=== PATIENT | male | born 1975 | race Caucasian/White ===

== ENCOUNTER 2017-04-21 06:07 | Emergency (ER) | payer OTHER ==
[~2017-04-21] VITALS: Ht 188 cm; Wt 85.0 kg
[~2017-04-21 06:07] MED LIST: LEVE100020 PO; LEVE500T53 PO; PRED5TAB19 PO; [UNRECOGNIZED DRUG - REMARK]
[2017-04-21 07:10] LABS: DAU SCREEN DISCLAIMER
[2017-04-21 07:20] LABS: HEMATOCRIT 42.2 % (39.2-51.8); HEMOGLOBIN 14.3 g/dL (13.7-18.0); WHITE BLOOD COUNT 10.4 x10^3/uL (3.4-10)
[2017-04-21 07:33] LABS: BLOOD UREA NITROGEN 18 mg/dL (7-18)
[2017-04-21 07:37] LABS: ASPARTATE AMINO TRANSFERASE 25 U/L (15-37)
[2017-04-21 07:42] LABS: ACETAMINOPHEN < 2 mcg/mL (10-30)
[2017-04-21 08:52] VITALS: BP 118/73
== END 2017-04-21 08:54 | disposition home or self-care (01) ==
LOC: ED 07:09
DX: F15.122 Other stimulant abuse with intoxication with perceptual disturbance (principal); F17.210 Nicotine dependence, cigarettes, uncomplicated; Z86.73 Personal history of transient ischemic attack (TIA), and cerebral infarction without residual deficits
CPT/HCPCS: 36415; 80053; 80307; 80329; 85025; 99284; G0480

== ENCOUNTER 2019-10-31 18:44 | Emergency (ER) | payer MEDICAID ==
[~2019-10-31] VITALS: Ht 182.9 cm; Wt 104.5 kg
[2019-10-31] MEDS ORDERED: LEVETIRACETAM 500 MG in SODIUM CHLORIDE 0.9% 100 ML IV ONE (19:00)
--- NOTE | 2019-10-31 19:05 | NUR ---
Pt arrives alert and oriented via [facility]. Pt's coworkers called [employer] after witnessing seizure like activiyt - full body jerky and eye rolling. 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 Pt takes keppra daily. PIV placed by TESS. Blood sugar 109. Pt in gown and on full monitors. Seizures precautions in place. Call light in place.
[2019-10-31] MEDS ORDERED: KETOROLAC 30 MG/1 ML ONE (19:25)
[2019-10-31] MEDS ORDERED: KETOROLAC 30 MG/1 ML IVPush ONE (19:30)
--- NOTE | 2019-10-31 19:32 | NUR ---
Pt medicated per NOV. Lab at bedside for draw.
[2019-10-31 19:33] LABS: BASOPHILS # (AUTO) 0.03 x10^3/uL (0-0.1); BASOPHILS % (AUTO) 1 % (0-1); EOSINOPHILS # (AUTO) 0.18 x10^3/uL (0-0.4); EOSINOPHILS % (AUTO) 3 % (1-7); LYMPHOCYTES # (AUTO) 2.27 x10^3/uL (1-3.4); LYMPHOCYTES % (AUTO) 42 % (22-44); MD NO; MEAN CORPUSCULAR HEMOGLOBIN 28.9 pg (27.5-34.5); MEAN CORPUSCULAR HGB CONC 33.4 g/dL (33.2-36.2); MEAN CORPUSCULAR VOLUME 86.5 fL (81-97); MEAN PLATELET VOLUME 7.9 fL (7.4-10.4); MONOCYTES # (AUTO) 0.39 x10^3/uL (0.2-0.8); MONOCYTES % (AUTO) 7 % (2-9); NEUTROPHILS # (AUTO) 2.51 x10^3/uL (1.8-6.8); NEUTROPHILS % (AUTO) 47 % (42-75); PLATELET COUNT 200 x10^3/uL (130-400); RED BLOOD COUNT 4.87 x10^6/uL (4.38-5.82); RED CELL DISTRIBUTION WIDTH 13.2 % (9.4-14.8)
[2019-10-31 19:44] LABS: ALBUMIN 3.7 g/dL (3.4-5.0); ANION GAP 7 mmol/L (5-15); CALCIUM 8.4 mg/dL (8.5-10.1); CHLORIDE 111 mmol/L (98-107); CREATININE 0.73 mg/dL (0.7-1.3)
[2019-10-31 20:29] VITALS: BP 122/69
--- NOTE | 2019-10-31 20:43 | NUR ---
Pt alert and oriented, NAD at time of d/c. No seizure activity noted in ER. Pt educated on prescription, home care, follow-up and S/Sx to return. Pt VU. Pt ambulated out of ER.
== END 2019-10-31 20:46 | disposition home or self-care (01) ==
LOC: ED 19:18
DX: G40.309 Generalized idiopathic epilepsy and epileptic syndromes, not intractable, without status epilepticus (principal); F17.200 Nicotine dependence, unspecified, uncomplicated; R94.31 Abnormal electrocardiogram [ECG] [EKG]; Z86.73 Personal history of transient ischemic attack (TIA), and cerebral infarction without residual deficits
CPT/HCPCS: 36415; 80048; 82040; 85025; 93005; 96365; 96375; 99284; J1885; J1953

== ENCOUNTER 2019-11-03 13:09 | Inpatient (IN) | payer MEDICAID ==
[~2019-11-03] VITALS: Ht 188 cm; Wt 101.9 kg
--- NOTE | 2019-11-03 13:23 | NUR ---
PT BIB [facility] FOR SEIZURES. PER EMS, PT WAS AT NEIGHBORS AND STATED HE DID NOT FEEL GOOD, UPON ARRIVING HOME HE CALLED 911 AND TOLD THEM HE FELT LIKE HE WAS GOING TO HAVE A SEIZURE. WHILE ON THE PHONE WITH 911, PT WENT UNRESPONSIVE AND HAD A SEIZURE. WHEN EMS ARRIVED ON SCENE, FSBG 122, 18G PIV ESTABLISHED IN LEFT AC, PT POST-ICTAL BUT AAO X 4, CONVERSING IN FULL SENTENCES. PT TOLD EMS HE DID NOT HIT HIS HEAD, NO C/O PAIN, AND NO INCONTINENCE. WHILE EN ROUTE TO FACILITY, PT HAD ANOTHER SEIZURE AND EMS GAVE A TOTAL 8MG IVP VERSED FOR STATUS EPILEPTICUS. PT THEN PLACED ON 15L NON-REBREATHER AND ETCO2 MONITOR (READING 35). PT ARRIVED TO ED SOMULENT, CONFUSED BUT POST-ICTAL. ANSWERING SOME QUESTIONS. PUPILS 4MM BRISK BILATERALLY. PT ON FULL MONITOR, SIDERAIL X [address] AND SEIZURE PADS IN PLACE. LAB AT BEDSIDE FOR LAB DRAW. MD AT BEDSIDE FOR ASSESSMENT.
[2019-11-03] MEDS ORDERED: SODIUM CHLORIDE FLUSH 10ML SYR IVF ONE (13:30)
[2019-11-03] MEDS ORDERED: LEVETIRACETAM 500 MG in SODIUM CHLORIDE 0.9% 100 ML IV ONE (13:30)
[2019-11-03 13:40] LABS: BASOPHILS # (AUTO) 0.03 x10^3/uL (0-0.1); BASOPHILS % (AUTO) 1 % (0-1); EOSINOPHILS # (AUTO) 0.24 x10^3/uL (0-0.4); EOSINOPHILS % (AUTO) 4 % (1-7); LYMPHOCYTES # (AUTO) 1.84 x10^3/uL (1-3.4); LYMPHOCYTES % (AUTO) 30 % (22-44); MD NO; MEAN CORPUSCULAR HEMOGLOBIN 28.9 pg (27.5-34.5); MEAN CORPUSCULAR HGB CONC 33.7 g/dL (33.2-36.2); MEAN CORPUSCULAR VOLUME 85.7 fL (81-97); MEAN PLATELET VOLUME 8.4 fL (7.4-10.4); MONOCYTES # (AUTO) 0.33 x10^3/uL (0.2-0.8); MONOCYTES % (AUTO) 6 % (2-9); NEUTROPHILS # (AUTO) 3.66 x10^3/uL (1.8-6.8); NEUTROPHILS % (AUTO) 60 % (42-75); PLATELET COUNT 203 x10^3/uL (130-400); RED CELL DISTRIBUTION WIDTH 13.4 % (9.4-14.8)
--- NOTE | 2019-11-03 13:40 | NUR ---
PT TO CT.
[2019-11-03] MEDS ORDERED: LORazepam 2 MG/ML, 1ML ONE (13:51)
[2019-11-03 13:52] LABS: ALANINE AMINOTRANSFERASE 25 U/L (12-78); ALBUMIN 3.8 g/dL (3.4-5.0); ANION GAP 9 mmol/L (5-15); CALCIUM 8.6 mg/dL (8.5-10.1); CHLORIDE 107 mmol/L (98-107); CREATININE 0.93 mg/dL (0.7-1.3)
[2019-11-03 13:55] LABS: ALKALINE PHOSPHATASE 75 U/L (45-117); BILIRUBIN,TOTAL 0.7 mg/dL (0.2-1.0); CREATINE KINASE, TOTAL 110 U/L (39-308); TOTAL PROTEIN 7.4 g/dL (6.4-8.2)
--- NOTE | 2019-11-03 13:57 | NUR ---
ASSUMED CARE OF PATIENT AFTER HE WAS MOVED TO TRAUMA 4 FROM ROOM 26. SBAR HAND-OFF REPORT RECEIVED FROM RAHEEL SIERRA. 2MG ATIVAN IVP GIVEN. IV KEPPRA STARTED.
--- NOTE | 2019-11-03 13:59 | NUR ---
PT HAS STOPPED SEIZING. SECOND PIV ESTABLISHED.
[2019-11-03] MEDS ORDERED: KETAMINE 10 MG/ML, 20ML ONE (14:18)
[2019-11-03] MEDS ORDERED: KETAMINE 10 MG/ML, 20ML IV ONE (14:30)
[2019-11-03] MEDS ORDERED: LORazepam 2 MG/ML, 1ML IVPush ONE (14:30)
--- NOTE | 2019-11-03 14:40 | NUR ---
PATIENT AWAKE NOW BUT DROWSY AND CONFUSED. PT DOES NOT RECALL EVENTS THAT BROUGHT HIM TO THE ER. DR. POP AT BEDSIDE. ORIENTING PATIENT TO WHAT HAS TRANSPIRED AND PLAN OF CARE. PT IN NO DISTRESS.
--- NOTE | 2019-11-03 14:59 | NUR ---
MOVED PATIENT TO ROOM 1. CONTINUOUS SPO2 AND CARDIAC MONITORS IN PLACE.
[2019-11-03] MEDS ORDERED: ACETAMINOPHEN 325 MG TABLET PO PRN (15:00)
[2019-11-03] MEDS ORDERED: ONDANSETRON ODT 4 MG PO PRN (15:00)
[2019-11-03] MEDS ORDERED: ENOXAPARIN 40 MG/0.4 ML SQ SCH (15:00)
[2019-11-03] MEDS ORDERED: hydrALAzine 20 MG/ML, 1ML IVPush PRN (15:00)
[2019-11-03] MEDS ORDERED: ENOXAPARIN 40 MG/0.4 ML ONE (15:09)
[2019-11-03 15:18] LABS: AMPHETAMINE SCREEN, URINE Negative (Negative); BARBITURATE SCREEN, URINE Negative (Negative); BENZODIAZEPINE SCREEN, URINE Positive (Negative); CANNABINOID SCREEN, URINE Negative (Negative); COCAINE SCREEN, URINE Negative (Negative); METHADONE SCREEN, URINE Negative (Negative); OPIATE SCREEN, URINE Negative (Negative)
--- NOTE | 2019-11-03 15:22 | NUR ---
Pt medicated per emar and meds requested.
--- NOTE | 2019-11-03 15:46 | NUR ---
REPORT CALLED TO RIANA RN [phone]
--- NOTE | 2019-11-03 16:06 | NUR ---
pT HAVING REPEATED TREMOROUS EVENTS, PER MD PT APPEARS TO BE HAVING PSEUDOSEIZURE.
--- NOTE | 2019-11-03 16:38 | NUR ---
PT INTENTIONALLY PULLED PIV OUT. PT REPORTS HE WAS HAVING Tasneem VARGHESE RN WHILE ASSISTING OTHER PATINE CLEARLY SAW PT SLWOLY PULLING TAPE AWAY AND BEGINING TO DISLODGE CATHETER. PT THEN STARTED FLINGING ARM. Addendum: 11/03/19 at 1641 by FRANCEARGJEAN PT INTENTIONALLY PULLED PIV OUT. PT REPORTS HE WAS HAVING Tasneem VARGHESE RN WHILE ASSISTING OTHER PATIENT CLEARLY SAW PT SLOWLY PULLING TAPE AWAY AND BEGINING TO DISLODGE CATHETER. PT THEN STARTED FLINGING ARM SECONDLY TO COMPLETELY DISLODGE IV.
[2019-11-03 17:50] VITALS: BP 129/83
[2019-11-03 19:31] VITALS: BP 112/71
[2019-11-03] MEDS: D5%-0.45NACL+KCL 20MEQ 1,000 ML IV SCH (20:25)
[2019-11-03] MEDS: LEVETIRACETAM 500 MG TABLET PO SCH (20:26)
[2019-11-03 21:15] VITALS: BP 110/68
[2019-11-04 02:12] VITALS: BP 110/68
[2019-11-04 06:22] LABS: BASOPHILS # (AUTO) 0.04 x10^3/uL (0-0.1); BASOPHILS % (AUTO) 1 % (0-1); EOSINOPHILS # (AUTO) 0.26 x10^3/uL (0-0.4); EOSINOPHILS % (AUTO) 5 % (1-7); LYMPHOCYTES # (AUTO) 2.57 x10^3/uL (1-3.4); LYMPHOCYTES % (AUTO) 46 % (22-44); MD NO; MEAN CORPUSCULAR HEMOGLOBIN 28.8 pg (27.5-34.5); MEAN CORPUSCULAR HGB CONC 33.6 g/dL (33.2-36.2); MEAN CORPUSCULAR VOLUME 85.7 fL (81-97); MEAN PLATELET VOLUME 8.9 fL (7.4-10.4); MONOCYTES # (AUTO) 0.38 x10^3/uL (0.2-0.8); MONOCYTES % (AUTO) 7 % (2-9); NEUTROPHILS # (AUTO) 2.36 x10^3/uL (1.8-6.8); NEUTROPHILS % (AUTO) 42 % (42-75); PLATELET COUNT 193 x10^3/uL (130-400); RED BLOOD COUNT 5.02 x10^6/uL (4.38-5.82); RED CELL DISTRIBUTION WIDTH 13.2 % (9.4-14.8)
[2019-11-04 06:32] LABS: ANION GAP 6 mmol/L (5-15); CALCIUM 8.7 mg/dL (8.5-10.1); CHLORIDE 108 mmol/L (98-107); CREATININE 0.87 mg/dL (0.7-1.3)
[2019-11-04 07:40] VITALS: BP 101/67
[2019-11-04] MEDS: LEVETIRACETAM 500 MG TABLET PO SCH (08:27)
[2019-11-04] MEDS ORDERED: LEVETIRACETAM 100 MG/ML, 5ML IV STA (08:37)
[2019-11-04] MEDS ORDERED: VALPROATE SODIUM 100 MG/ML, 5ML IV STA (08:57)
[2019-11-04] MEDS ORDERED: LEVETIRACETAM 500 MG in SODIUM CHLORIDE 0.9% 100 ML IV ONE (09:00)
[2019-11-04] MEDS ORDERED: VALPROATE SODIUM 750 MG in SODIUM CHLORIDE 0.9% 100 ML IV ONE (09:30)
[2019-11-04] MEDS: D5%-0.45NACL+KCL 20MEQ 1,000 ML IV SCH (13:14)
[2019-11-04] MEDS ORDERED: VALP250C59 PO (13:20)
[2019-11-04] MEDS ORDERED: LEVE500T53 PO (13:20)
[2019-11-04 14:18] VITALS: BP 114/74
[2019-11-04] MEDS ORDERED: VALPROIC ACID 250 MG CAPSULE PO SCH (20:00)
[2019-11-04] MEDS ORDERED: LEVETIRACETAM 500 MG TABLET PO SCH (21:00)
== END 2019-11-04 15:03 | disposition home or self-care (01) | DRG 101 ==
LOC: EDIP 14:21 → SUATTDRO 14:24 → ED 14:44 → 4EST 16:35 → DCLOUNGE 11-04 15:02
PROVIDERS: ADMIT Hospitalist; ATTEND Family Medicine
DX: G40.909 Epilepsy, unspecified, not intractable, without status epilepticus (principal); Z86.73 Personal history of transient ischemic attack (TIA), and cerebral infarction without residual deficits; Z79.899 Other long term (current) drug therapy
CPT/HCPCS: 36415; 70450; 80048; 80053; 80177; 80307; 82550; 83605; 83735; 85025; 93005; 95816; 96372; 96374; 96375; G0378; J1650; J1953; J2060; J3480

== ENCOUNTER 2019-12-07 10:39 | Emergency (ER) | payer MEDICAID ==
[~2019-12-07] VITALS: Ht 188 cm; Wt 103.0 kg
[~2019-12-07 10:39] MED LIST changes: +VALP250C59 PO
[2019-12-07] MEDS ORDERED: SODIUM CHLORIDE 0.9% 1,000ML IVBOLUS ONE (11:00)
[2019-12-07] MEDS ORDERED: SODIUM CHLORIDE FLUSH 10ML SYR IVF ONE (11:00)
--- NOTE | 2019-12-07 11:30 | NUR ---
task RN note: PIV placed, pt attached to all monitors, seizure precautions in place. mask on patient. report given to RAHEEL Galan.
[2019-12-07] MEDS ORDERED: LEVE500T53 PO (11:36)
--- NOTE | 2019-12-07 11:38 | NUR ---
REPORT FROM BENEDICT PICKERING. XR LABS PENDING. PT STILL C/O AURA. A&OX4 GCS 15. 06/18 BODY ACHES. CALL RAMIREZ IN REACH. VSS. SR ON MONITOR 60S.
[2019-12-07 11:54] LABS: BASOPHILS # (AUTO) 0.07 x10^3/uL (0-0.1); BASOPHILS % (AUTO) 1 % (0-1); EOSINOPHILS # (AUTO) 0.33 x10^3/uL (0-0.4); EOSINOPHILS % (AUTO) 6 % (1-7); LYMPHOCYTES # (AUTO) 2.01 x10^3/uL (1-3.4); LYMPHOCYTES % (AUTO) 35 % (22-44); MD NO; MEAN CORPUSCULAR HGB CONC 33.8 g/dL (33.2-36.2); MEAN CORPUSCULAR VOLUME 85.9 fL (81-97); MEAN PLATELET VOLUME 8.8 fL (7.4-10.4); MONOCYTES # (AUTO) 0.45 x10^3/uL (0.2-0.8); MONOCYTES % (AUTO) 8 % (2-9); NEUTROPHILS # (AUTO) 2.83 x10^3/uL (1.8-6.8); NEUTROPHILS % (AUTO) 50 % (42-75); PLATELET COUNT 203 x10^3/uL (130-400); RED BLOOD COUNT 5.34 x10^6/uL (4.38-5.82); RED CELL DISTRIBUTION WIDTH 13.4 % (9.4-14.8)
[2019-12-07 12:02] LABS: ALANINE AMINOTRANSFERASE 36 U/L (12-78); ALBUMIN 3.7 g/dL (3.4-5.0); ANION GAP 6 mmol/L (5-15); CALCIUM 8.5 mg/dL (8.5-10.1); CHLORIDE 109 mmol/L (98-107); CREATININE 1.16 mg/dL (0.7-1.3)
[2019-12-07 12:05] LABS: ALKALINE PHOSPHATASE 97 U/L (45-117); BILIRUBIN,TOTAL 0.7 mg/dL (0.2-1.0); TOTAL PROTEIN 7.6 g/dL (6.4-8.2)
[2019-12-07 12:16] LABS: RAPID INFLUENZA A Negative (Negative); RAPID INFLUENZA B Negative (Negative)
[2019-12-07 13:05] VITALS: BP 112/60
--- NOTE | 2019-12-07 13:25 | NUR ---
Patient/Caregiver given discharge instructions and they have confirmed that they understand the instructions. Patient ambulatory with steady gait.
== END 2019-12-07 13:43 | disposition home or self-care (01) ==
LOC: ED 10:56
DX: R11.2 Nausea with vomiting, unspecified (principal); Z20.828 Contact with and (suspected) exposure to other viral communicable diseases; R05 Cough; R19.7 Diarrhea, unspecified; G43.909 Migraine, unspecified, not intractable, without status migrainosus; Z86.73 Personal history of transient ischemic attack (TIA), and cerebral infarction without residual deficits
CPT/HCPCS: 36415; 71045; 80053; 83690; 85025; 87400; 93005; 96360; 99285; J7030

== ENCOUNTER 2019-12-20 17:02 | Emergency (ER) | payer MEDICAID ==
[~2019-12-20] VITALS: Ht 185.4 cm; Wt 114.0 kg
[2019-12-20 17:29] LABS: BASOPHILS # (AUTO) 0.04 x10^3/uL (0-0.1); BASOPHILS % (AUTO) 1 % (0-1); EOSINOPHILS # (AUTO) 0.15 x10^3/uL (0-0.4); EOSINOPHILS % (AUTO) 3 % (1-7); LYMPHOCYTES # (AUTO) 2.06 x10^3/uL (1-3.4); LYMPHOCYTES % (AUTO) 35 % (22-44); MD NO; MEAN CORPUSCULAR HEMOGLOBIN 28.9 pg (27.5-34.5); MEAN CORPUSCULAR HGB CONC 33.4 g/dL (33.2-36.2); MEAN CORPUSCULAR VOLUME 86.6 fL (81-97); MEAN PLATELET VOLUME 7.9 fL (7.4-10.4); MONOCYTES # (AUTO) 0.36 x10^3/uL (0.2-0.8); MONOCYTES % (AUTO) 6 % (2-9); NEUTROPHILS # (AUTO) 3.24 x10^3/uL (1.8-6.8); NEUTROPHILS % (AUTO) 55 % (42-75); PLATELET COUNT 205 x10^3/uL (130-400); RED BLOOD COUNT 4.85 x10^6/uL (4.38-5.82)
[2019-12-20] MEDS ORDERED: THIAMINE 100 MG in DEXTROSE 5% 50 ML IVPB ONE (17:30)
[2019-12-20] MEDS ORDERED: SODIUM CHLORIDE FLUSH 10ML SYR IVF ONE (17:30)
[2019-12-20] MEDS ORDERED: PLEASE ENTER HEIGHT AND WEIGHT MC SCH (17:30)
[2019-12-20 17:40] LABS: ALANINE AMINOTRANSFERASE 29 U/L (12-78); ALBUMIN 3.8 g/dL (3.4-5.0); ANION GAP 9 mmol/L (5-15); CALCIUM 8.5 mg/dL (8.5-10.1); CHLORIDE 109 mmol/L (98-107); CREATININE 0.89 mg/dL (0.7-1.3); SALICYLATE LEVEL 1.7 mg/dL (2.8-20.0)
--- NOTE | 2019-12-20 17:41 | NUR ---
PT MEDICATED PER NOV. PT SLEEPING IN [facility] AT THIS TIME; NADN. PT VSS AT THIS TIME.
[2019-12-20 18:15] LABS: ALKALINE PHOSPHATASE 76 U/L (45-117); BILIRUBIN,TOTAL 0.3 mg/dL (0.2-1.0); TOTAL PROTEIN 7.2 g/dL (6.4-8.2)
--- NOTE | 2019-12-20 18:41 | NUR ---
PT IS AWAKE AND ALERT AND ORIENTED. PT REQUESTING SNACK AT THIS TIME. DR RIOS AT FOR PT HISTORY AND ASSESSMENT.
[2019-12-20 19:02] VITALS: BP 106/64
--- NOTE | 2019-12-20 19:02 | NUR ---
PT RESTING IN ROOM. VSS. WARM BLANKET PROVIDED FOR COMFORT. NO OTHER NEEDS EXPRESSED. WILL CONTINUE TO MONITOR.
--- NOTE | 2019-12-20 20:22 | NUR ---
pt able to safely ambulate without assistance. plan to dc.
== END 2019-12-20 20:20 ==
LOC: ED 17:17
DX: G40.309 Generalized idiopathic epilepsy and epileptic syndromes, not intractable, without status epilepticus (principal); G43.909 Migraine, unspecified, not intractable, without status migrainosus; R55 Syncope and collapse; F17.200 Nicotine dependence, unspecified, uncomplicated
CPT/HCPCS: 36415; 70450; 80053; 80164; 80307; 85025; 93005; 96365; 99285; J3411

== ENCOUNTER 2020-06-29 00:32 | Emergency (ER) | payer MEDICAID, OTHER ==
[~2020-06-29] VITALS: Ht 177.8 cm; Wt 90.0 kg
--- NOTE | 2020-06-29 00:35 | NUR ---
44 year old male to ED [facility] for seizures. EMS was activated by his as he had a seizure in bed. Upon arrival, he was wittnessed to have another seizure. He was given 5 mg versed IM, then 2mg more IVP. He was immediately AAO x 4 per report. Upon arrival, he was noted to have several episodes of shaking with confusion. He states the last thing he remembers is lying in bed at home. ED workup initiated.
--- NOTE | 2020-06-29 00:47 | NUR ---
Patient having multiple seizures every 5 minutes that last 60 seconds with shaking. Airway remains uncompromised. Seizure pads placed on rails, suction nearby. Md notified. Awaiting response.
[2020-06-29 01:10] LABS: BASOPHILS % (AUTO) 1 % (0-1); EOSINOPHILS % (AUTO) 4 % (1-7); LYMPHOCYTES % (AUTO) 51 % (22-44); MEAN CORPUSCULAR HEMOGLOBIN 28.2 pg (27.5-34.5); MEAN CORPUSCULAR HGB CONC 33.3 g/dL (33.2-36.2); MEAN PLATELET VOLUME 8.4 fL (7.4-10.4); MONOCYTES % (AUTO) 7 % (2-9); NEUTROPHILS % (AUTO) 38 % (42-75); PLATELET COUNT 199 x10^3/uL (130-400); RED BLOOD COUNT 5.24 x10^6/uL (4.38-5.82); RED CELL DISTRIBUTION WIDTH 13.6 % (9.4-14.8)
[2020-06-29 01:16] LABS: ALANINE AMINOTRANSFERASE 24 U/L (12-78); ALBUMIN 3.8 g/dL (3.4-5.0); ANION GAP 6 mmol/L (5-15); CALCIUM 8.7 mg/dL (8.5-10.1); CHLORIDE 109 mmol/L (98-107); CREATININE 0.81 mg/dL (0.7-1.3)
[2020-06-29 01:18] LABS: ALKALINE PHOSPHATASE 82 U/L (45-117); BILIRUBIN,TOTAL 0.3 mg/dL (0.2-1.0); TOTAL PROTEIN 7.1 g/dL (6.4-8.2)
--- NOTE | 2020-06-29 01:35 | NUR ---
patient asleep yet rousable to touch. He remains confused. VSS.
[2020-06-29 01:37] LABS: MD SCAN
--- NOTE | 2020-06-29 03:00 | NUR ---
patient asleep yet rousable to touch. He remains confused. VSS.
[2020-06-29 04:19] VITALS: BP 100/59
--- NOTE | 2020-06-29 06:09 | NUR ---
SPOKE TO THE PATIENT'S , SHE WILL BE IN ROUTE TO PICK HIM UP AROUND 7.
--- NOTE | 2020-06-29 06:50 | NUR ---
BEDSIDE REPORT FROM MALIKA PICKERING WITH ASSESSMENT PATIENT WITHOUT ANY NEUROLOGICAL ABNORMALITIES. WALKING W/OUT DIFFICULTY, EATING [facility] CALLED
== END 2020-06-29 07:18 | disposition home or self-care (01) ==
LOC: ED 06:21
DX: R56.9 Unspecified convulsions (principal); F17.200 Nicotine dependence, unspecified, uncomplicated; Z86.73 Personal history of transient ischemic attack (TIA), and cerebral infarction without residual deficits
CPT/HCPCS: 36415; 80053; 80307; 85025; 93005; 99284

== ENCOUNTER 2020-08-03 16:52 | Emergency (ER) | payer MEDICAID ==
[~2020-08-03] VITALS: Ht 188 cm; Wt 110.0 kg
[2020-08-03 16:54] VITALS: BP 117/72
[2020-08-03 17:23] LABS: BASOPHILS % (AUTO) 1 % (0-1); EOSINOPHILS % (AUTO) 4 % (1-7); LYMPHOCYTES % (AUTO) 45 % (22-44); MEAN CORPUSCULAR HEMOGLOBIN 28.8 pg (27.5-34.5); MEAN CORPUSCULAR HGB CONC 33.9 g/dL (33.2-36.2); MEAN PLATELET VOLUME 8.2 fL (7.4-10.4); MONOCYTES % (AUTO) 6 % (2-9); NEUTROPHILS % (AUTO) 45 % (42-75); PLATELET COUNT 213 x10^3/uL (130-400); RED BLOOD COUNT 5.49 x10^6/uL (4.38-5.82); RED CELL DISTRIBUTION WIDTH 13.8 % (9.4-14.8)
[2020-08-03 17:28] LABS: MD NO
[2020-08-03 17:33] LABS: ALANINE AMINOTRANSFERASE 22 U/L (12-78); ALBUMIN 4.1 g/dL (3.4-5.0); ANION GAP 6 mmol/L (5-15); CALCIUM 9.1 mg/dL (8.5-10.1); CHLORIDE 107 mmol/L (98-107); CREATININE 0.91 mg/dL (0.7-1.3)
[2020-08-03 17:36] LABS: ALKALINE PHOSPHATASE 83 U/L (45-117); BILIRUBIN,TOTAL 0.5 mg/dL (0.2-1.0); TOTAL PROTEIN 7.9 g/dL (6.4-8.2)
--- NOTE | 2020-08-03 19:34 | NUR ---
NO ANSWER FOR EKG @ [id number]
--- NOTE | 2020-08-03 20:06 | NUR ---
NO ANSWER FOR ROOM.
--- NOTE | 2020-08-03 20:27 | NUR ---
3 rd time call in lobby. no anwer
== END 2020-08-03 20:29 | disposition left against medical advice (07) ==
LOC: ED 17:22
DX: J06.9 Acute upper respiratory infection, unspecified (principal); R05 Cough; R53.83 Other fatigue; R06.02 Shortness of breath; R07.89 Other chest pain
CPT/HCPCS: 36415; 71045; 80053; 83690; 85025; 99284

== ENCOUNTER 2020-11-28 01:24 | Emergency (ER) | payer MEDICAID ==
[~2020-11-28] VITALS: Ht 188 cm; Wt 110.0 kg
[2020-11-28 02:12] LABS: BASOPHILS % (AUTO) 1 % (0-1); EOSINOPHILS % (AUTO) 4 % (1-7); LYMPHOCYTES % (AUTO) 48 % (22-44); MEAN CORPUSCULAR HEMOGLOBIN 28.7 pg (27.5-34.5); MEAN CORPUSCULAR HGB CONC 33.5 g/dL (33.2-36.2); MEAN PLATELET VOLUME 8.5 fL (7.4-10.4); MONOCYTES % (AUTO) 7 % (2-9); NEUTROPHILS % (AUTO) 40 % (42-75); PLATELET COUNT 188 x10^3/uL (130-400); RED BLOOD COUNT 4.92 x10^6/uL (4.38-5.82); RED CELL DISTRIBUTION WIDTH 13.8 % (9.4-14.8)
[2020-11-28 02:20] LABS: ALANINE AMINOTRANSFERASE 26 U/L (12-78); ALBUMIN 3.3 g/dL (3.4-5.0); ANION GAP 6 mmol/L (5-15); CALCIUM 7.9 mg/dL (8.5-10.1); CHLORIDE 113 mmol/L (98-107)
[2020-11-28 02:21] LABS: MD SCAN
[2020-11-28 02:24] LABS: ALKALINE PHOSPHATASE 92 U/L (45-117); BILIRUBIN,TOTAL 0.2 mg/dL (0.2-1.0); TOTAL PROTEIN 6.3 g/dL (6.4-8.2); TROPONIN I < 0.015 ng/mL (0.000-0.045)
[2020-11-28 02:35] VITALS: BP 122/65
== END 2020-11-28 03:09 | disposition home or self-care (01) ==
LOC: ED 03:03
DX: R06.00 Dyspnea, unspecified (principal); R07.89 Other chest pain; F41.1 Generalized anxiety disorder; F17.200 Nicotine dependence, unspecified, uncomplicated; G40.909 Epilepsy, unspecified, not intractable, without status epilepticus; Z86.73 Personal history of transient ischemic attack (TIA), and cerebral infarction without residual deficits
CPT/HCPCS: 36415; 71045; 80053; 84484; 85025; 93005; 99285

== ENCOUNTER 2021-04-07 18:13 | Inpatient (IN) | payer MEDICAID ==
[~2021-04-07] VITALS: Ht 188 cm; Wt 98.4 kg
[2021-04-07] MEDS ORDERED: LORazepam 2 MG/ML, 1ML ONE ×2 (18:18)
[2021-04-07] MEDS ORDERED: MIDAZOLAM 1 MG/ML, 5ML ONE (18:24)
[2021-04-07] MEDS ORDERED: SODIUM CHLORIDE 0.9% 1,000ML IVBOLUS ONE (18:30)
[2021-04-07] MEDS ORDERED: LORazepam 2 MG/ML, 1ML IVPush ONE (18:30)
--- NOTE | 2021-04-07 18:31 | NUR ---
pt bib [facility]. witnessed sz at home by fire and ems. pt medicated in route 2.5 versed. pt on monitor and actively sz intermittently. medicated per orders dr cedeno at bedside.. ativan 8mg total, 4mg versed. pt maintaining airway. see vs 135/75 hr 75 sats 99%
--- NOTE | 2021-04-07 18:33 | NUR ---
mx iv attempts. R EJ by Clara PICKERING
[2021-04-07 18:54] LABS: ALANINE AMINOTRANSFERASE 24 U/L (12-78); ALBUMIN 3.5 g/dL (3.4-5.0); ANION GAP 8 mmol/L (5-15); BASOPHILS % (AUTO) 1 % (0-1); CALCIUM 8.5 mg/dL (8.5-10.1); CHLORIDE 108 mmol/L (98-107); CREATININE 0.85 mg/dL (0.7-1.3); EOSINOPHILS % (AUTO) 3 % (1-7); LYMPHOCYTES % (AUTO) 40 % (22-44); MEAN CORPUSCULAR HEMOGLOBIN 28.2 pg (27.5-34.5); MEAN CORPUSCULAR HGB CONC 32.9 g/dL (33.2-36.2); MEAN PLATELET VOLUME 8.5 fL (7.4-10.4); MONOCYTES % (AUTO) 7 % (2-9); NEUTROPHILS % (AUTO) 50 % (42-75); PLATELET COUNT 201 x10^3/uL (130-400); RED BLOOD COUNT 5.21 x10^6/uL (4.38-5.82); RED CELL DISTRIBUTION WIDTH 13.4 % (9.4-14.8)
--- NOTE | 2021-04-07 18:54 | NUR ---
REPORT FROM KAJAL PICKERINGDREDGE DECKHAND OF CARE AT THIS TIME
[2021-04-07 18:56] LABS: ALKALINE PHOSPHATASE 74 U/L (45-117); BILIRUBIN,TOTAL 0.3 mg/dL (0.2-1.0)
--- NOTE | 2021-04-07 18:56 | NUR ---
REQ SENT TO PHARM FOR MEDS, PT RESTING ON JEANMARIE PABON AT BEDSIDE.
[2021-04-07] MEDS ORDERED: MIDAZOLAM 1 MG/ML, 2ML IVPush PRN (19:00)
[2021-04-07] MEDS ORDERED: LEVETIRACETAM 750 MG in SODIUM CHLORIDE 0.9% 100 ML IV ONE (19:00)
[2021-04-07] MEDS ORDERED: PLEASE ENTER HEIGHT AND WEIGHT MC SCH (19:00)
--- NOTE | 2021-04-07 19:10 | NUR ---
PT TO CT WITH RNCHAVEZ STARTED.
--- NOTE | 2021-04-07 19:28 | NUR ---
PT BACK FROM CT AT THIS TIME LOADING DOSE OF KEPPRA COMPLETED.
--- NOTE | 2021-04-07 20:12 | NUR ---
hospitalist at bedside for admit
--- NOTE | 2021-04-07 20:59 | NUR ---
RECEIVED REPORT FROM HERMELINDA PICKERING, TRANSFER OF CARE. PT CURRENTLY SLEEPING IN BED. AT BEDSIDE. JEANMARIE, VSS. ATTACHED TO ALL MONITORS. SEIZURE SAFETY PRECAUTIONS PUT INTO PLACE. WCTM
[2021-04-07] MEDS ORDERED: ONDANSETRON 2MG/ML, 2ML IV PRN (21:00)
[2021-04-07] MEDS ORDERED: ACETAMINOPHEN 650 MG/20.3 ML UDC PO PRN (21:00)
[2021-04-07] MEDS ORDERED: DOCUSATE 100 MG CAPSULE PO PRN (21:00)
[2021-04-07] MEDS ORDERED: LORazepam 2 MG/ML, 1ML IV PRN (21:00)
--- NOTE | 2021-04-07 21:11 | NUR ---
crystal [phone]
[2021-04-07] MEDS ORDERED: VALPROATE SODIUM 750 MG in DEXTROSE 5% 100 ML IV SCH (21:30)
[2021-04-07] MEDS: LEVETIRACETAM 500 MG in SODIUM CHLORIDE 0.9% 100 ML IV SCH (21:30)
[2021-04-07] MEDS ORDERED: ENOXAPARIN 40 MG/0.4 ML ONE (21:35)
--- NOTE | 2021-04-07 21:45 | NUR ---
REPORT GIVEN TO JUSTIN PICKERING
[2021-04-07] MEDS: ENOXAPARIN 40 MG/0.4 ML SQ SCH (21:47)
--- NOTE | 2021-04-07 21:48 | NUR ---
sent josephine back to pharmacy. [facility] said to skip first dose due to last dose given so soon,
[2021-04-07] MEDS: VALPROATE SODIUM 750 MG in DEXTROSE 5% 100 ML IV SCH (21:51)
[2021-04-07 22:30] VITALS: BP 114/72
[2021-04-08 01:35] VITALS: BP 111/74
[2021-04-08 05:43] LABS: BASOPHILS % (AUTO) 1 % (0-1); EOSINOPHILS % (AUTO) 3 % (1-7); LYMPHOCYTES % (AUTO) 42 % (22-44); MEAN CORPUSCULAR HEMOGLOBIN 29.1 pg (27.5-34.5); MEAN CORPUSCULAR HGB CONC 34.4 g/dL (33.2-36.2); MEAN PLATELET VOLUME 8.4 fL (7.4-10.4); MONOCYTES % (AUTO) 7 % (2-9); NEUTROPHILS % (AUTO) 48 % (42-75); PLATELET COUNT 176 x10^3/uL (130-400); RED BLOOD COUNT 5.17 x10^6/uL (4.38-5.82); RED CELL DISTRIBUTION WIDTH 13.1 % (9.4-14.8)
[2021-04-08 05:56] LABS: ANION GAP 4 mmol/L (5-15); CALCIUM 8.7 mg/dL (8.5-10.1); CHLORIDE 110 mmol/L (98-107)
[2021-04-08 05:58] LABS: CREATININE 0.79 mg/dL (0.7-1.3)
[2021-04-08 06:55] VITALS: BP 111/69
[2021-04-08] MEDS: LEVETIRACETAM 500 MG in SODIUM CHLORIDE 0.9% 100 ML IV SCH ×2 (11:15→23:09)
[2021-04-08] MEDS: VALPROATE SODIUM 750 MG in DEXTROSE 5% 100 ML IV SCH ×2 (11:50→20:55)
[2021-04-08] MEDS ORDERED: VALP250C59 PO (11:53)
[2021-04-08] MEDS ORDERED: LEVE500T53 PO (11:53)
[2021-04-08 14:01] VITALS: BP 107/66
[2021-04-08] MEDS ORDERED: LORazepam 2 MG/ML, 1ML IVPush ONE (14:30)
[2021-04-08 16:43] LABS: AMPHETAMINE SCREEN, URINE Negative (Negative); BARBITURATE SCREEN, URINE Negative (Negative); BENZODIAZEPINE SCREEN, URINE Positive (Negative); CANNABINOID SCREEN, URINE Negative (Negative); COCAINE SCREEN, URINE Negative (Negative); METHADONE SCREEN, URINE Negative (Negative); OPIATE SCREEN, URINE Negative (Negative)
[2021-04-08 16:48] LABS: TROPONIN I < 0.015 ng/mL (0.000-0.045)
[2021-04-08 20:53] VITALS: BP 103/64
[2021-04-08] MEDS: ENOXAPARIN 40 MG/0.4 ML SQ SCH (20:55)
[2021-04-08 21:50] LABS: TROPONIN I < 0.015 ng/mL (0.000-0.045)
[2021-04-09 00:58] VITALS: BP 103/66
[2021-04-09 06:07] LABS: BASOPHILS % (AUTO) 1 % (0-1); EOSINOPHILS % (AUTO) 3 % (1-7); LYMPHOCYTES % (AUTO) 48 % (22-44); MEAN CORPUSCULAR HEMOGLOBIN 29.1 pg (27.5-34.5); MEAN CORPUSCULAR HGB CONC 34.5 g/dL (33.2-36.2); MEAN PLATELET VOLUME 8.7 fL (7.4-10.4); MONOCYTES % (AUTO) 6 % (2-9); NEUTROPHILS % (AUTO) 42 % (42-75); PLATELET COUNT 182 x10^3/uL (130-400); RED BLOOD COUNT 5.09 x10^6/uL (4.38-5.82); RED CELL DISTRIBUTION WIDTH 13.5 % (9.4-14.8)
[2021-04-09 06:16] LABS: ALBUMIN 3.2 g/dL (3.4-5.0); ANION GAP 6 mmol/L (5-15); CALCIUM 8.6 mg/dL (8.5-10.1); CHLORIDE 109 mmol/L (98-107)
[2021-04-09 06:20] LABS: ALANINE AMINOTRANSFERASE 18 U/L (12-78); ALKALINE PHOSPHATASE 69 U/L (45-117); BILIRUBIN,TOTAL 0.5 mg/dL (0.2-1.0); CREATININE 0.77 mg/dL (0.7-1.3); TOTAL PROTEIN 6.7 g/dL (6.4-8.2)
[2021-04-09 07:35] VITALS: BP 114/76
[2021-04-09] MEDS: VALPROATE SODIUM 750 MG in DEXTROSE 5% 100 ML IV SCH (08:42)
[2021-04-09] MEDS: LEVETIRACETAM 500 MG in SODIUM CHLORIDE 0.9% 100 ML IV SCH (11:35)
== END 2021-04-09 13:20 | disposition home or self-care (01) | DRG 914 ==
LOC: ED 18:33 → 4EST 22:25
PROVIDERS: ADMIT Internal Medicine; ATTEND Hospitalist
DX: S09.90XA Unspecified injury of head, initial encounter (principal); G40.901 Epilepsy, unspecified, not intractable, with status epilepticus; W18.39XA Other fall on same level, initial encounter; F91.9 Conduct disorder, unspecified; F41.1 Generalized anxiety disorder; F17.200 Nicotine dependence, unspecified, uncomplicated; Y93.89 Activity, other specified; Y92.89 Other specified places as the place of occurrence of the external cause; Y99.8 Other external cause status; Z86.73 Personal history of transient ischemic attack (TIA), and cerebral infarction without residual deficits
CPT/HCPCS: 36415; 70450; 71045; 80048; 80053; 80307; 80320; 82962; 83735; 84484; 85025; 93005; 93306; 93356; 95812; 96374; 96375; G0378; J1650; J1953; J2250; G0480; J2060; J7030

== ENCOUNTER 2021-04-18 22:11 | Emergency (ER) | payer MEDICAID ==
[~2021-04-18] VITALS: Ht 193 cm; Wt 110.0 kg
[2021-04-18 22:29] VITALS: BP 129/69
[2021-04-18] MEDS ORDERED: HYDROcodone/APAP 5/325 TABLET PO ONE (23:00)
[2021-04-18] MEDS ORDERED: METHOCARBAMOL 750 MG TABLET PO ONE (23:00)
--- NOTE | 2021-04-18 23:22 | NUR ---
BATH STEWARD/STEWARDESS: X-RAY TECH TO CHARGE DEST REPORTS PT. HAND IS ICE COLD AND PT. STATES NO FEELING IN HAND. ROOMED IMMEDIATLEY AND CHART HANDED TO PROVIDER AT THIS TIME.
[2021-04-18] MEDS ORDERED: HYDROcodone/APAP 5/325 TABLET ONE (23:24)
[2021-04-18] MEDS ORDERED: METHOCARBAMOL 750 MG TABLET ONE (23:24)
--- NOTE | 2021-04-18 23:28 | NUR ---
PATIENT MEDICATED PER MAR.
--- NOTE | 2021-04-18 23:31 | NUR ---
PATIENT REPORTS HE WAS WORKING YESTERDAY WHEN HE INJURED HIS LEFT SHOULDER/ARM. HE IS UNSURE OF EXACTLY HOW HE INJURED IT.
[2021-04-18] MEDS ORDERED: LIDOCAINE-MPF 1%, 5ML ONE (23:35)
[2021-04-19] MEDS ORDERED: HYDROcodone/APAP 5/325 TABLET PO ONE (01:00)
[2021-04-19] MEDS ORDERED: DEXAMETHASONE 4 MG TABLET PO ONE (01:00)
[2021-04-19] MEDS ORDERED: DEXAMETHASONE 4 MG TABLET ONE (01:03)
[2021-04-19] MEDS ORDERED: HYDROcodone/APAP 5/325 TABLET ONE (01:04)
--- NOTE | 2021-04-19 01:14 | NUR ---
Patient given discharge instructions and they have confirmed that they understand the instructions. Patient ambulatory with steady gait. NAD, all questions answered appropriately, denies additional needs at this time. No personal belongings left in room after discharge.
== END 2021-04-19 01:18 | disposition home or self-care (01) ==
LOC: ED 23:59
DX: M47.812 Spondylosis without myelopathy or radiculopathy, cervical region (principal); M47.22 Other spondylosis with radiculopathy, cervical region; G43.909 Migraine, unspecified, not intractable, without status migrainosus; F17.200 Nicotine dependence, unspecified, uncomplicated; Z86.73 Personal history of transient ischemic attack (TIA), and cerebral infarction without residual deficits
CPT/HCPCS: 72050; 99284